=== PATIENT | female | born 1995 | race Caucasian/White ===

== ENCOUNTER 2019-09-30 08:27 | Emergency (ER) | payer OTHER, SELFPAY ==
[2019-09-30 08:50] VITALS: BP 118/72; PULSE 88; RESP 16; TEMP 36.7; O2SAT 100
--- NOTE | 2019-09-30 08:58 | ED.URI ---
HPI - URI/Sore Throat General Chief Complaint: Upper Respiratory Infection Stated Complaint: sore throat Time Seen by Provider: 09/30/19 08:58 Source: patient and RN notes reviewed History of Present Illness HPI Narrative: Patient is a 24-year-old female that presents the urgent care with complaints of a sore throat and intermittent nausea since Saturday. Patient states that her sister was diagnosed with strep this weekend and she was with her. Denies of any fever, vomiting, abdominal pain. Has been using [place] and ibuprofen for her symptoms. No other acute complaints. No acute distress noted. Patient read the plan of care. Related Data Home Medications Medication Instructions Recorded Confirmed etonogestrel [Nexplanon] 1 implant SUBDERMAL ONCE 09/30/19 09/30/19 Allergies Allergy/AdvReac Type Severity Reaction Status Date / Time ziprasidone Allergy Unknown unknown Verified 09/30/19 08:58 Review of Systems Review of Systems: Narrative: CONSTITUTIONAL: Denies fever, chills, or sweats. EYES: Denies visual changes, redness, or discharge. ENT: Reports of sore throat CARDIOVASCULAR: Denies chest pain, palpitations, or edema. RESPIRATORY: Denies cough or dyspnea. GASTROINTESTINAL: Reports of intermittent nausea without vomiting or diarrhea GENITOURINARY: Denies dysuria or hematuria. SKIN: Denies rash or itching. MUSCULOSKELETAL: Denies back pain, joint pain, or myalgia. NEUROLOGIC: Denies headache, numbness, or weakness. All other systems reviewed are negative, except as documented in HPI. PMFSH Comments At the time of my signature, I reviewed and agree with the nursing past medical, surgical, social, and family history. There is no relevant family history pertinent to the patient complaint. Exam Narrative: Exam Narrative: GENERAL: This is a well-nourished, well-developed patient, in no apparent distress. HEAD: normocephalic, atraumatic. EYES: PERRL. Sclera clear/white. Vision is grossly intact. EARS: External ears normal, auditory canals clear and without drainage, TMs normal without perforation. Hearing grossly intact. NOSE: External nose normal with no obvious nasal discharge, nares without redness, no rhinorrhea. THROAT: Mucous membranes moist, mild erythema noted posterior oropharynx with mild postnasal drainage NECK: Neck supple, non-tender without lymphadenopathy, masses or thyromegaly. CARDIOVASCULAR: Regular rate and rhythm without murmurs, gallops, or rubs. RESPIRATORY: Clear to auscultation. Breath sounds equal bilaterally. No wheezes, rales, or rhonchi. SKIN: warm, intact with no suspicious lesions or rash, good texture and turgor. NEURO: awake, alert, and oriented to person, place and time. There were no obvious focal neurologic abnormalities. EXTREMITIES: No clubbing, cyanosis, or edema. Course Vital Signs Vital signs: Vital Signs Temperature 98.1 F 09/30/19 08:50 Pulse Rate 88 09/30/19 08:50 Respiratory Rate 16 09/30/19 08:50 Blood Pressure 118/72 09/30/19 08:50 Pulse Oximetry 100 09/30/19 08:50 Temperature 98.1 F 09/30/19 08:50 Pulse Rate 88 09/30/19 08:50 Respiratory Rate 16 09/30/19 08:50 Blood Pressure 118/72 09/30/19 08:50 Pulse Oximetry 100 09/30/19 08:50 Reviewed MDM - URI/Sore Throat MDM Narrative Medical decision making narrative: Reviewed lab results with the patient. She is aware that strep swab was negative. Educated patient on culture and will call within 72 hours if culture is positive and antibiotics are necessary. Advised patient to use Flonase and Claritin [id number] for symptoms. Use ibuprofen/Tylenol as needed. Increase fluids and rest. Follow-up with PCP within 2 to 5 days or for worsening symptoms or failure to improve. Differential Diagnosis Differential diagnosis: Likely upper respiratory infection, otitis media, sinusitis, viral infection, bronchitis, influenza and pharyngitis Lab Data Attestation: I reviewed the patient's lab
== END 2019-09-30 09:08 | disposition home or self-care (01) ==
PROVIDERS: Emergency Provider Nurse Practitioner Family
DX: J02.9 Acute pharyngitis, unspecified (principal)
CPT/HCPCS: 87081; 87880; 99213; G0463

== ENCOUNTER 2020-11-28 11:49 | Emergency (ER) | payer OTHER, SELFPAY ==
[2020-11-28 12:02] VITALS: BP 112/63; PULSE 76; RESP 16; TEMP 36.7; O2SAT 98
[2020-11-28 12:14] VITALS: BP 112/63; PULSE 76; RESP 16; TEMP 36.7; O2SAT 98
--- NOTE | 2020-11-28 12:22 | ED.FEMALEGU ---
HPI - Female Genitourinary General Chief complaint: Urogenital-Female Stated complaint: Urogenital-Female Source: patient Mode of arrival: ambulatory Limitations: no limitations History of Present Illness HPI Narrative: Patient is a 25-year-old female presents complaining of burning with urination x1 day. She reports taking Azo with limited relief. She denies a history of UTIs. She denies vaginal discharge. She denies exposure to STDs. Patient does not have abdominal pain, nausea, vomiting, fever or other complaints. Patient has no significant medical history. MD elicited complaint: UTI Related Data Home Medications Medication Instructions Recorded Confirmed etonogestrel [Nexplanon] 1 implant SUBDERMAL ONCE 09/30/19 11/28/20 Allergies Allergy/AdvReac Type Severity Reaction Status Date / Time ziprasidone Allergy Mild unknown Verified 11/28/20 12:14 Review of Systems Review of Systems: Narrative: CONSTITUTIONAL: Denies fever, chills, or sweats. EYES: Denies visual changes, redness, or discharge. ENT: Denies rhinorrhea, congestion, sore throat, or otalgia. CARDIOVASCULAR: Denies chest pain, palpitations, or edema. RESPIRATORY: Denies cough or dyspnea. GASTROINTESTINAL: Denies abdominal pain, nausea, vomiting, or diarrhea. GENITOURINARY: Reports burning with urination SKIN: Denies rash or itching. MUSCULOSKELETAL: Denies back pain, joint pain, or myalgia. NEUROLOGIC: Denies headache, numbness, dizziness, or weakness. PSYCHIATRIC: Denies anxiety or depression. PMFSH Past Medical History Medical History No significant past medical history Surgical History Surgical History No significant past surgical history Family History Family History (Updated 11/28/20 @ 12:24 by VIKY Durham) Other No significant family history Social History Social History (Updated 11/28/20 @ 12:25 by VIKY Durham) Smoking status: Never smoker Alcohol intake: current Alcohol use details: occasional Substance use: never Exam Narrative: Exam Narrative: GENERAL: Well-appearing, well-nourished, and in no acute distress. HEAD: Normocephalic, atraumatic. EYES No redness or drainage. Conjunctiva are normal. ENT: Mucous membranes pink and moist. CHEST: No respiratory distress. HEART: Regular rate and rhythm. GI: Soft, nontender without rebound, or guarding. MUSCULOSKELETAL: No bony tenderness. EXTREMITIES: Normal range of motion. No edema. SKIN: Warm, dry, no rash. NEURO: No focal deficits. Alert and oriented x3. Gait steady. PSYCH: Normal affect. No signs of depression or anxiety. Course Vital Signs Vital signs: Vital Signs Temperature 36.7 C 11/28/20 12:02 Pulse Rate 76 11/28/20 12:02 Respiratory Rate 16 11/28/20 12:02 Blood Pressure 112/63 11/28/20 12:02 Pulse Oximetry 98 11/28/20 12:02 Temperature 36.7 C 11/28/20 12:14 Pulse Rate 76 11/28/20 12:14 Respiratory Rate 16 11/28/20 12:14 Blood Pressure 112/63 11/28/20 12:14 Pulse Oximetry 98 11/28/20 12:14 MDM - Female Genitourinary MDM Narrative Medical decision making narrative: Patient's urine shows no signs of infection at this time. Discussed with patient the option of pelvic exam and STD testing, she declines at this time. Patient reports she has no risk of STDs. Discussed good hydration as well as follow-up in 3 to [address] or [facility] as needed. Patient is stable for discharge home with outpatient follow-up as discussed. Differential Diagnosis Differential diagnosis: Likely urinary tract infection, bacterial vaginosis and vaginitis Lab Data Labs: Urine Glucose Negative Reference Range: Negative Urine Bilirubin Negative Reference Range: Negat
== END 2020-11-28 12:25 | disposition home or self-care (01) ==
PROVIDERS: Emergency Provider Nurse Practitioner
DX: R30.0 Dysuria (principal)
CPT/HCPCS: 81003; 99212; G0463

== ENCOUNTER 2022-09-04 14:42 | Emergency (ER) | payer OTHER, SELFPAY ==
[2022-09-04 14:49] VITALS: BP 110/96; PULSE 88; RESP 16; TEMP 36.8; O2SAT 100
--- NOTE | 2022-09-04 14:51 | ED.FEMALEGU ---
HPI - Female Genitourinary General Chief complaint: Urogenital-Female Stated complaint: poss uti Time Seen by Provider: 09/04/22 15:15 Source: patient and RN notes reviewed Mode of arrival: ambulatory Limitations: no limitations History of Present Illness HPI Narrative: 27 y/o female presented for c/o burning with urination and right lower back pain. Onset yesterday. Denies hematuria, frequency, urgency, or abdominal pain, n/v/d/f/c. Took at-home UTI test, states it was positive. Endorses hx UTIs, states this feels similar. Related Data Home Medications Medication Instructions Recorded Confirmed etonogestrel 68 mg subdermal 1 implant subdermal ONCE 09/30/19 09/04/22 implant (Nexplanon) Allergies Allergy/AdvReac Type Severity Reaction Status Date / Time ziprasidone Allergy Mild unknown Verified 09/04/22 14:50 Review of Systems Review of Systems: CONSTITUTIONAL: Denies body aches, fever, chills, or sweats. CARDIOVASCULAR: Denies chest pain, palpitations, or edema. RESPIRATORY: Denies cough or dyspnea. GASTROINTESTINAL: Denies abdominal pain, nausea, vomiting, or diarrhea. GENITOURINARY: Reports dysuria, denies frequency, urgency, hematuria, flank pain SKIN: Denies rash, itching, or wounds. MUSCULOSKELETAL: Denies back pain or myalgia. [facility] Past Medical History Medical History No significant past medical history Surgical History Surgical History No significant past surgical history Family History Family History Other No significant family history Social History Social History Smoking status: Never smoker Alcohol intake: current Alcohol use details: occasional Substance use: never Comments At time of signature, I have reviewed and agree with nursing past medical, surgical, social and family history unless otherwise noted. Please see nursing chart for further information. There is no relevant family history pertinent to the presenting complaint Exam Narrative: GENERAL: Well-appearing and in no acute distress. HEAD: Normocephalic EYES: EOMI. . ENT: Mucous membranes pink and moist. NECK: Normal AROM. Supple. CHEST: No respiratory distress. Clear to auscultation. HEART: Regular rate and rhythm. ABDOMEN: Soft, nontender, nondistended, normal active bowel sounds. No CVA tenderness MUSCULOSKELETAL: No bony tenderness. No apparent musculoskeletal tenderness on exam. SKIN: Warm, dry, no rash. NEURO: No focal deficits. Alert and oriented x3. Gait steady. PSYCH: Normal affect. Course Course Emergency Course: Patient is aware of diagnosis, understands and agrees to treatment plan. Anticipatory guidance given. Patient agrees to follow-up as directed and is aware of reasons to seek care at the emergency department. Portions of this record may have been created with voice recognition software Level of Care: Express Care Visit Vital Signs Vital signs: Vital Signs Temperature 98.2 F 09/04/22 14:49 Pulse Rate 88 09/04/22 14:49 Respiratory Rate 16 09/04/22 14:49 Blood Pressure 110/96 H 09/04/22 14:49 Pulse Oximetry 100 09/04/22 14:49 Oxygen Delivery Room Air 09/04/22 14:49 Temperature 98.2 F 09/04/22 14:49 Pulse Rate 88 09/04/22 14:49 Respiratory Rate 16 09/04/22 14:49 Blood Pressure 110/96 H 09/04/22 14:49 Pulse Oximetry 100 09/04/22 14:49 Oxygen Delivery Room Air 09/04/22 14:49 Reviewed MDM - Female Genitourinary MDM Narrative Medical decision making narrative: results of urine reviewed with patient. Advised supportive measures and signs/symptoms to go to the ER. Pt is appropriate for outpt treatment and f/u. Differential Diagnosis Differential diagnosis: Likely urinary tract infection and cystitis L
== END 2022-09-04 15:27 | disposition home or self-care (01) ==
PROVIDERS: Emergency Provider Nurse Practitioner Family; PCP Emergency Medicine
DX: R30.0 Dysuria (principal)
CPT/HCPCS: 81003; 87086; 99213; G0463

== ENCOUNTER 2023-03-28 10:23 | Emergency (ER) | payer OTHER, SELFPAY ==
--- NOTE | 2023-03-28 10:33 | ED.URI ---
HPI - URI/Sore Throat General Chief Complaint: Upper Respiratory Infection Stated Complaint: Cough/Sore Throat Time Seen by Provider: 03/28/23 10:36 Source: patient, RN notes reviewed and old records reviewed Mode of arrival: ambulatory Limitations: no limitations History of Present Illness HPI Narrative: 27 year old female presents to the [facility] with complaints of a sore throat that started on Saturday, cough started on Saturday. denies fevers feeling a little worse today. States that she took a Sudafed this morning feels a little better. NyQuil last night. No other treatment prior to arrival Related Data Home Medications Medication Instructions Recorded Confirmed etonogestrel 68 mg subdermal 1 implant subdermal ONCE 09/30/19 03/28/23 implant (Nexplanon) Allergies Allergy/AdvReac Type Severity Reaction Status Date / Time ziprasidone Allergy Mild unknown Verified 09/04/22 14:50 Review of Systems Review of Systems: All systems reviewed & are unremarkable except as noted in HPI and below Constitutional: Constitutional: Reports no additional constitutional complaints Eyes: Eyes: Reports no additional eye complaints ENT: Reports as per HPI, Reports nasal congestion and Reports sore throat Cardiovascular: Cardiovascular: Reports no additional cardiovascular complaints, Denies chest pain and Denies dyspnea Respiratory: Respiratory: Reports no additional respiratory complaints, Denies chest congestion, Denies cough and Denies dyspnea Gastrointestinal: Gastrointestinal: Reports no additional gastrointestinal complaints, Denies abdominal pain, Denies nausea and Denies vomiting Musculoskeletal: Musculoskeletal: Reports no additional musculoskeletal complaints Integumentary/Breasts: Skin/Breast: Reports system reviewed and no additional complaints, except as docu Neurologic: Reports system reviewed and no additional complaints, except as documented Psychiatric: Psychiatric: Reports no additional psychiatric complaints Allergic/Immunologic: Allergic/Immunologic: Reports no additional allergic/immunologic complaints [facility] Past Medical History Medical History No significant past medical history Surgical History Surgical History No significant past surgical history Family History Family History Other No significant family history Social History Social History Smoking status: Never smoker Alcohol intake: current Alcohol use details: occasional Substance use: never Comments At the time of my signature, I reviewed and agree with the nursing past medical, surgical, social, and family history. There is no relevant family history pertinent to the patient complaint. Exam Const: General: cooperative, healthy appearing, comfortable, no acute distress, well developed, alert and well nourished Nutritional Appearance: well nourished Orientation/consciousness: patient oriented x3 Limitations: no limitations HENMT: Head: normal to inspection Ears: hearing grossly normal bilaterally, external ears normal, TM's normal bilaterally and EAC's normal Face/Nose/Sinus: Normal external nose present, Normal nares present, Normal nasal mucous membranes and turbinates present and normal facial exam Face and sinus: normal facial exam Mouth: Yes Normal oral and palatal mucosa present, Yes lip normal and Yes moist mucous membranes Throat: posterior oropharynx normal, uvula midline and postnasal drainage Eyes: General: appearance normal, both eyes and all related structures Alignment and Position: alignment normal Periorbital: periorbital findings normal Pupils: Equal, round and reactive pupils present EOM: EOMs intact bilaterally Neck: Neck: normal visual inspection, full ROM, no lymphadenopathy
[2023-03-28 10:37] VITALS: BP 122/72; PULSE 105; RESP 16; TEMP 37.1; O2SAT 98
== END 2023-03-28 10:53 | disposition home or self-care (01) ==
PROVIDERS: Emergency Provider Nurse Practitioner
DX: J06.9 Acute upper respiratory infection, unspecified (principal)
CPT/HCPCS: 87081; 87880; 99213; G0463